=== PATIENT | female | born 1935 | race Caucasian/White ===

== ENCOUNTER 2016-03-08 12:25 | Emergency (ER) | payer OTHER ==
[2016-03-08 12:47] VITALS: BP 178/83; PULSE 83; RESP 20; TEMP 97.5; O2SAT 93
== END 2016-03-08 12:50 | disposition left against medical advice (07) ==
LOC: CED 12:25
DX: Z53.8 Procedure and treatment not carried out for other reasons (principal)

== ENCOUNTER 2016-03-08 13:17 | Emergency (ER) | payer OTHER ==
--- NOTE | 2016-03-08 14:44 | EDPHY ---
H & P Time Seen by Provider: 03/08/16 14:42 HPI/ROS: Chief complaint. Fall HPI. 80-year-old female slipped on the ice at about 4 o'clock yesterday afternoon she was out for a walk. Struck her face. Did not lose consciousness. She had laceration to her nose that blood quite a bit. Also injury to the right knee with lacerations and the right 4th finger. No chest discomfort or trouble breathing. No abdominal pain no back pain. ROS Constitutional. no fever/chills, no weakness Eyes. no problems with vision ENT. no sore throat, no nasal drainage. Bruising to the face Cardiovascular. no chest pain Respiratory. no shortness of breath, no cough Abdominal. no abdominal pain, no nausea/vomiting, no diarrhea . no problems urinating MS. Pain and swelling to right knee. Maybe some neck pain. Skin. Laceration to nose, a right 4th finger, right knee Lymph. no swollen glands Neuro. no headache, no dizziness, no difficulty walking or with speech Past Medical/Surgical History: Osteoporosis Social History: , lives alone, nonsmoker, denies alcohol Smoking Status: Never smoked Physical Exam: General Appearance: Alert well-developed female mild distress vitals are stable Eyes: Pupils equal and round no pallor or injection. Bilateral periorbital ecchymosis ENT, tympanic membranes are normal; no oral pharyngeal trauma; no septal hematoma Respiratory: There are no retractions, lungs are clear to auscultation. Cardiovascular: Regular rate and rhythm. Gastrointestinal: Abdomen is soft and nontender, no masses, bowel sounds normal. Neurological: Awake and alert, sensory and motor exams grossly normal. Skin: Warm and dry, no rashes. Laceration to bridge of nose that is not bleeding and has fairly good approximation. Musculoskeletal: Neck is supple nontender. Extremities symmetrical, full range of motion. Swelling to the right knee with superficial lacerations. Laceration to the tip of the right 4th finger and the patient feels that there may be gravel in it Psychiatric: Patient is oriented X 3, there is no agitation. Constitutional: Initial Vital Signs Temperature (C) 37 C 03/08/16 13:21 Heart Rate 77 03/08/16 13:21 Respiratory Rate 18 03/08/16 13:21 Blood Pressure 183/109 H 03/08/16 13:21 O2 Sat (%) 95 01/14/17 13:21 O2 Delivery Mode Room Air Allergies/Adverse Reactions: No Known Allergies Allergy (Verified 03/08/16 13:21) Home Medications: Medication Instructions Recorded NK [No Known Home Meds] 03/08/16 Medical Decision Making - Diagnostics Imaging: CT head and cervical spine significant for small chip fracture off the nose. This is reviewed by me and discussed with Dr. Walter X-ray right knee shows no evidence of fracture dislocation X-ray right 4th finger shows no evidence of foreign body or fracture or dislocation ED Course/Re-evaluation: Patient's wounds are cleaned and dressed. She and I discussed imaging study results, treatment plan including criteria for return importance of follow-up and further evaluation. She expresses understanding and agreement Differential Diagnosis: I considered intracranial bleeding, fractures, dislocation Departure - Departure Disposition: Home, Routine, Self-Care Clinical Impression: Fracture of nasal bone Qualifiers: Encounter type: initial encounter Fracture type: closed Qualifier Code: ( S02.2XXA) Fracture of nasal bones, initial encounter for closed fracture Condition: Good Instructions: Nasal Fracture (ED) Additional Instructions: Ice to face and knee next 24-48 hours. Tylenol and ibuprofen for discomfort. Return for worsening symptoms. Re-evaluation by Dr. Valera an Ear Nose Throat physician later this week. Referrals: Jessika Valera MD [Primary Care Provider] - 2-3 days without fail George Coelho MD [Medical Doctor] - 5-7 days, call for appt.
--- NOTE | 2016-03-08 16:37 | CT ---
Unenhanced CT Scan of the Brain and Cervical Spine Clinical History: 80-year-old female who fell forward yesterday, hitting her face, with swelling and bruising near the nose and the orbits. The patient denies any loss of consciousness. Technique: Standard unenhanced axial CT images were acquired from the skull base to the skull vertex, with images reformatted at 5.00 and 1.50 mm increments, and reviewed in bone, subdural, and brain wi ndows. The DFOV is 25.0 cm. Subsequently, a multidetector unenhanced helical CT scan was obtained fro m the clivus to the T1-T2 disk interspace, reformatted at 1.50 mm increments, and reviewed in bone, s oft tissue, and lung windows. The DFOV is 12.0 cm. Parasagittal and paracoronal reconstructed images are reviewed on the workstation. A dose reduction protocol was used. Comparison Study: None. Findings: UNENHANCED CT SCAN OF THE BRAIN: There is prominence of the ventricles and basilar cisterns with sang ical sulcal widening, consistent with moderately advanced cerebral cortical atrophy. There is also pe riventricular diminished attenuation, most consistent with chronic microvascular ischemic gliosis. Th ere is no acute or subacute abnormal intraaxial or extraaxial blood collection. There is a mild degre e of cerebellar atrophy. The brainstem is grossly unremarkable. There is some mild atherosclerotic ca lcification of the cavernous carotid arteries, and of the left vertebral artery. The paranasal sinuse s and mastoids are unremarkable. There is no acute skull fracture. There are some osteolucencies most consistent with pacchionian granulations in the left medial occipital calvarium. There is some mild perinasal soft tissue swelling and a mild contour irregularity associated with the right nasal bone. The nasomaxillary spine on each side is intact. The medial and lateral pterygoid plates are intact as are the zygomatic arches. The temporomandibular joints are anatomically aligned. The orbital rims ar e intact. The craniocervical junction is normal. There is an empty sella turcica. The calcified pinea l gland is unremarkable. Impression: 1. Moderately advanced senescent features, with no acute intracranial abnormality. 2. Contour deformity associated with the right nasal bone may reflect a nondisplaced fracture. UNENHANCED CT SCAN OF THE CERVICAL SPINE: There is straightening of the normal cervical lordosis, whi ch may be secondary to recumbent positioning or reflect some underlying cervicalgia. There are trace anterolistheses at C2-C3, C3-C4, and C4-C5, and trace retrolistheses at C5-C6 and C6-C7, likely degen erative in etiology. There is severe degenerative disk space narrowing at C5-C6 and C6-C7 with ventra l and dorsal traction osteophytes. There is no acute fracture identified, and there is no facet malal ignment. The craniocervical junction is normal. There is some osseous hypertrophy along the anterior ring of C1, and some narrowing of the predental space. The lateral masses of C1 and C2 are aligned, a nd the base of the dens is unremarkable. The visualized prevertebral soft tissues are unremarkable. T here is some minor heterogeneity associated with the upper poles of the thyroid gland, and the lower poles of the thyroid gland were not included. The visualized lung apices are notable for some mild pl europarenchymal fibrosis. At the C2-C3 level, there is the aforementioned trace anterolisthesis. There is facet hypertrophy, ri ght greater than left. There is a mild degree of right neural foraminal narrowing. The central canal and left neural foramen are patent. At the C3-C4 level, there is the aforementioned trace anterolisthesis. There is bilateral facet hyper trophy, right greater than left, with some uncovertebral hypertrophy resulting in wldr-os-hbrzewao ri ght neural foraminal stenosis. The left neural foramen and central canal remain patent. At the C4-C5 level, there is trace anterolisthesis. There is facet hypertrophy, left greater than rig ht, with uncovertebral osteophyte formation resulting in sdco-wa-mezsxdee right neural foraminal sten osis, and ruwuwiag-gj-omifvw left neural foraminal stenosis. There is no central canal stenosis. At the C5-C6 level, there is advanced degenerative disk space narrowing with facet hypertrophy and un covertebral osteophyte formation resulting in severe bilateral neural foraminal stenoses. There is no central canal stenosis. At the C6-C7 level, there is advanced degenerative disk space narrowing with uncovertebral osteophyte formation and facet hypertrophy. There is severe right and khmd-cv-wpwfacfc left neural foraminal st enosis. There is no central canal stenosis. At the C7-T1 level, there is a moderate degree of degenerative disk space narrowing. There is some mi ld bilateral facet hypertrophy and uncovertebral osteophyte formation, resulting in mild right neural foraminal stenosis. The left neural foramen and central canal remain patent. Impression: Multilevel degenerative changes, as-detailed, but no acute fracture identified. If there is further clinical concern regarding the patient's brain or cervical spine, MR imaging coul d be considered. Results were discussed with Dr. Dat Prado. A test result has been communicated to a licensed care provider and documented in [employer], 4:25:58 PM , 03/08/2016, [employer] Message ID [id number].
--- NOTE | 2016-03-08 16:37 | CT ---
Unenhanced CT Scan of the Brain and Cervical Spine Clinical History: 80-year-old female who fell forward yesterday, hitting her face, with swelling and bruising near the nose and the orbits. The patient denies any loss of consciousness. Technique: Standard unenhanced axial CT images were acquired from the skull base to the skull vertex, with images reformatted at 5.00 and 1.50 mm increments, and reviewed in bone, subdural, and brain wi ndows. The DFOV is 25.0 cm. Subsequently, a multidetector unenhanced helical CT scan was obtained fro m the clivus to the T1-T2 disk interspace, reformatted at 1.50 mm increments, and reviewed in bone, s oft tissue, and lung windows. The DFOV is 12.0 cm. Parasagittal and paracoronal reconstructed images are reviewed on the workstation. A dose reduction protocol was used. Comparison Study: None. Findings: UNENHANCED CT SCAN OF THE BRAIN: There is prominence of the ventricles and basilar cisterns with sang ical sulcal widening, consistent with moderately advanced cerebral cortical atrophy. There is also pe riventricular diminished attenuation, most consistent with chronic microvascular ischemic gliosis. Th ere is no acute or subacute abnormal intraaxial or extraaxial blood collection. There is a mild degre e of cerebellar atrophy. The brainstem is grossly unremarkable. There is some mild atherosclerotic ca lcification of the cavernous carotid arteries, and of the left vertebral artery. The paranasal sinuse s and mastoids are unremarkable. There is no acute skull fracture. There are some osteolucencies most consistent with pacchionian granulations in the left medial occipital calvarium. There is some mild perinasal soft tissue swelling and a mild contour irregularity associated with the right nasal bone. The nasomaxillary spine on each side is intact. The medial and lateral pterygoid plates are intact as are the zygomatic arches. The temporomandibular joints are anatomically aligned. The orbital rims ar e intact. The craniocervical junction is normal. There is an empty sella turcica. The calcified pinea l gland is unremarkable. Impression: 1. Moderately advanced senescent features, with no acute intracranial abnormality. 2. Contour deformity associated with the right nasal bone may reflect a nondisplaced fracture. UNENHANCED CT SCAN OF THE CERVICAL SPINE: There is straightening of the normal cervical lordosis, whi ch may be secondary to recumbent positioning or reflect some underlying cervicalgia. There are trace anterolistheses at C2-C3, C3-C4, and C4-C5, and trace retrolistheses at C5-C6 and C6-C7, likely degen erative in etiology. There is severe degenerative disk space narrowing at C5-C6 and C6-C7 with ventra l and dorsal traction osteophytes. There is no acute fracture identified, and there is no facet malal ignment. The craniocervical junction is normal. There is some osseous hypertrophy along the anterior ring of C1, and some narrowing of the predental space. The lateral masses of C1 and C2 are aligned, a nd the base of the dens is unremarkable. The visualized prevertebral soft tissues are unremarkable. T here is some minor heterogeneity associated with the upper poles of the thyroid gland, and the lower poles of the thyroid gland were not included. The visualized lung apices are notable for some mild pl europarenchymal fibrosis. At the C2-C3 level, there is the aforementioned trace anterolisthesis. There is facet hypertrophy, ri ght greater than left. There is a mild degree of right neural foraminal narrowing. The central canal and left neural foramen are patent. At the C3-C4 level, there is the aforementioned trace anterolisthesis. There is bilateral facet hyper trophy, right greater than left, with some uncovertebral hypertrophy resulting in ejrx-mi-ychedkxz ri ght neural foraminal stenosis. The left neural foramen and central canal remain patent. At the C4-C5 level, there is trace anterolisthesis. There is facet hypertrophy, left greater than rig ht, with uncovertebral osteophyte formation resulting in rkxk-yu-jhejdaju right neural foraminal sten osis, and ngpwubcg-or-twkxji left neural foraminal stenosis. There is no central canal stenosis. At the C5-C6 level, there is advanced degenerative disk space narrowing with facet hypertrophy and un covertebral osteophyte formation resulting in severe bilateral neural foraminal stenoses. There is no central canal stenosis. At the C6-C7 level, there is advanced degenerative disk space narrowing with uncovertebral osteophyte formation and facet hypertrophy. There is severe right and dghr-zx-wwmliakt left neural foraminal st enosis. There is no central canal stenosis. At the C7-T1 level, there is a moderate degree of degenerative disk space narrowing. There is some mi ld bilateral facet hypertrophy and uncovertebral osteophyte formation, resulting in mild right neural foraminal stenosis. The left neural foramen and central canal remain patent. Impression: Multilevel degenerative changes, as-detailed, but no acute fracture identified. If there is further clinical concern regarding the patient's brain or cervical spine, MR imaging coul d be considered. Results were discussed with Dr. Dat Prado. A test result has been communicated to a licensed care provider and documented in [employer], 4:25:58 PM , 03/08/2016, [employer] Message ID [id number].
--- NOTE | 2016-03-08 16:45 | DX ---
Right Knee, 5 Views Clinical Indications: Pain with associated laceration following trauma. Findings: A fracture or other acute osseous abnormality is not identified. The bone alignment is nor mal. No radiopaque foreign body is seen. Mild degenerative changes are noted. Impression: Negative for radiopaque foreign body or fracture.
--- NOTE | 2016-03-08 16:53 | DX ---
Three views right 4th digit Reason for examination: Pain following trauma; distal tip laceration. Findings: A fracture or other acute osseous abnormality is not seen. Degenerative changes are seen in volving interphalangeal joints of all the digits. Osseous demineralization is seen. No radiopaque for eign body is seen. Impression: Negative for acute osseous abnormality or radiopaque foreign body.
[2016-03-08 17:28] VITALS: BP 165/99; PULSE 75; RESP 16; TEMP 98.2; O2SAT 99
== END 2016-03-08 17:28 | disposition home or self-care (01) ==
DX: S02.2XXA Fracture of nasal bones, initial encounter for closed fracture (principal); W00.0XXA Fall on same level due to ice and snow, initial encounter; Y99.8 Other external cause status; Y93.01 Activity, walking, marching and hiking

== ENCOUNTER 2018-02-06 11:26 | Day surgery (SDC) | payer OTHER ==
[2018-02-06] MEDS ORDERED: GLUCAGON HCL 1 MG VIAL IVP ONE (12:19)
--- NOTE | 2018-02-06 12:22 | EDPHY ---
H & P Stated Complaint: choked on chicken 4pm yesterday/unable to swallow since Time Seen by Provider: 02/06/18 12:06 HPI/ROS: CHIEF COMPLAINT: Esophageal food impaction HISTORY OF PRESENT ILLNESS: 82-year-old female with history of esophageal stricture presents with an esophageal food impaction. At 4:00 p.m. yesterday, she was eating chicken and it became lodged in her esophagus. Unable to tolerate oral fluids or food since yesterday. Vomits immediately after oral intake. Associated with moderate pain over the lower chest. History of prior similar symptoms with esophageal food impactions. Status post esophageal dilation by Dr. Vela. REVIEW OF SYSTEMS: complete 10 point ROS reviewed and is negative except for the noted elements in the HPI - Personal History Current Tetanus Diphtheria and Acellular Pertussis (TDAP): Unsure - Medical/Surgical History Hx Asthma: No Hx Chronic Respiratory Disease: No Hx Diabetes: No Hx Cardiac Disease: No Hx Renal Disease: No Hx Cirrhosis: No Hx Alcoholism: No Hx HIV/AIDS: No Hx Splenectomy or Spleen Trauma: No Other PMH: osteoporosis esophageal stricture - Social History Smoking Status: Never smoked Alcohol Use: Sober Drug Use: None - Physical Exam Exam: General Appearance: Alert, pleasant and talkative Eyes: Pupils equal and round, no conjunctival pallor ENT, Mouth: Mucous membranes moist Neck: Normal inspection Respiratory: Lungs are clear to auscultation Cardiovascular: Regular rate and rhythm Gastrointestinal: Abdomen is soft and nontender Neurological: A&O, nonfocal, normal gait Skin: Warm and dry Extremities: Normal inspection Psychiatric: Mood and affect normal Constitutional: Initial Vital Signs Temperature (C) 36.3 C 02/06/18 11:38 Heart Rate 94 02/06/18 11:38 Respiratory Rate 18 02/06/18 11:38 Blood Pressure 151/122 H 02/06/18 11:38 O2 Sat (%) 94 02/06/18 11:38 O2 Delivery Mode Room Air O2 (L/minute) 4 Allergies/Adverse Reactions: No Known Allergies Allergy (Verified 02/06/18 11:37) Home Medications: Medication Instructions Recorded Protonix 02/06/18 Medical Decision Making ED Course/Re-evaluation: This patient presents with a esophageal food impaction. Glucagon 1 mg IV given without relief. GI consulted. Discussed with Dr. Corbin, pt taken directly for endoscopy. Differential Diagnosis: includes though not limited to gastric outlet obstruction, peptic ulcer disease , esophageal tumor - Data Points Medications Given: Discontinued Medications Glucagon (Glucagon) 1 mg IVP EDNOW ONE Stop: 02/06/18 12:20 Last Admin: 02/06/18 12:25 Dose: 1 mg Departure - Departure Disposition: Home, Routine, Self-Care Clinical Impression: Esophageal obstruction due to food impaction Condition: Fair
[2018-02-06] MEDS ORDERED: SUCCINYLCHOLINE CHLORIDE 200 MG/10 ML SYR IVP ONE (13:08)
[2018-02-06] MEDS ORDERED: ONDANSETRON 4 MG/2 ML VIAL ONE (13:08)
--- NOTE | 2018-02-06 13:22 | PDCONSULT ---
[employer] Accounts Manager Note: 82 yo female with foreign body in esophagus. Asked to assist with EGD today for removal PMH: esophageal stenosis and previous dysphagia Osteoporosis PSH: Prior EGD with dilation Meds: Protonix All: NKDA SH: No tob No etoh O: 151/120 HR 94 T 36.3 O2 sat 94% NAD CTA B/L RRR without m/r/g GI soft. NT/ND A/P Foreign body esophagus EGD with removal under MAC.
--- NOTE | 2018-02-06 13:39 | PDANEPAE ---
ANE Past Medical History - Cardiovascular History Hx Hypertension: Yes - Pulmonary History Hx COPD: No Hx Asthma/Reactive Airway Disease: No Hx Oxygen in Use at Home: No - Endocrine History Hx Diabetes: No - Renal History Hx Renal Disorders: No - Liver History Hx Hepatic Disorders: No - Neurological & Psychiatric Hx Hx Neurological and Psychiatric Disorders: No - Surgical History Prior Surgeries: Breast Surgery ANE Review of Systems Review of Systems: ANE Patient History - Allergies Allergies/Adverse Reactions: No Known Allergies Allergy (Verified 02/06/18 11:37) - Home Medications Home Medications: Protonix 02/06/18 [Last Taken Unknown] - NPO status NPO Since - Liquids (Date): 02/05/18 NPO Since - Liquids (Time): 21:00 NPO Since - Solids (Date): 02/05/18 NPO Since - Solids (Time): 21:00 - Smoking Hx Smoking Status: Never smoked ANE Labs/Vital Signs - Vital Signs Blood Pressure: 171/100 Heart Rate: 99 Respiratory Rate: 18 O2 Sat (%): 93 Height: 162.56 cm Weight: 68.946 kg ANE Physical Exam - Airway Neck exam: FROM Mallampati Score: Class 2 Mouth exam: normal dental/mouth exam - Pulmonary Pulmonary: no respiratory distress - Cardiovascular Cardiovascular: regular rate and rhythym, no murmur, rub, or gallop - ASA Status ASA Status: II, E ANE Anesthesia Plan Anesthesia Plan: general endotracheal anesthesia
[2018-02-06] MEDS ORDERED: NALOXONE HCL 0.4 MG/ML INJ IVP PRN (13:49)
[2018-02-06] MEDS ORDERED: PHENYLEPHRINE HCL 100 MCG/ML SYR IVP PRN (13:49)
[2018-02-06] MEDS ORDERED: fentaNYL 100 MCG/2 ML INJ IVP PRN (13:49)
[2018-02-06] MEDS ORDERED: MEPERIDINE 25 MG/0.5 ML AMP IVP PRN (13:49)
[2018-02-06] MEDS ORDERED: ONDANSETRON 4 MG/2 ML VIAL IVP PRN (13:49)
[2018-02-06] MEDS ORDERED: PROMETHAZINE HCL 25 MG/ML INJ IVP PRN (13:49)
[2018-02-06] MEDS ORDERED: METOCLOPRAMIDE 10 MG/2 ML VIAL IVP PRN (13:49)
--- NOTE | 2018-02-06 14:22 | GIREPORT ---
[facility] - Endoscopy Department Patient Name: Nicci Guzman Procedure Date: 02/06/2018 12:56 PM Patient Type: Outpatient Attending MD/ ER Physician: Case Corbin MD Procedure: Upper GI endoscopy Indications: Dysphagia, Foreign body in the esophagus Providers: Case Corbin MD Medicines: General Anesthesia Complications: No immediate complications. Description of Procedure: After obtaining informed consent, the endoscope was passed under direct vision. Throughout the procedure, the patient's blood pressure, pulse, and oxygen saturations were monitored continuously. The Endoscope was intro duced through the mouth, and advanced to the middle third of esophagus. Due t o a large amount of chicken and a stricture this endoscope could not pass t he obstruction. The Pediatric upper Endoscope was introduced through the m outh and was utilized to bridge the food bolus and stenosis, clear the food bolus, and advanced to the second part of duodenum. The patient tolerat ed the procedure well. The upper GI endoscopy was somewhat difficult due t o presence of foreign body. Findings: Food was found in the middle third of the esophagus and in the lower th ird of the esophagus. Removal of food was accomplished. One benign-appearing, intrinsic stenosis was found at the gastroesophag eal junction. This stenosis was moderately severe and measured 1 cm (inner diameter) x 2 cm (in length). The stenosis was traversed after downsizi ng scope. A small amount of food (residue) was found in the gastric fundus. The examined duodenum was normal. Estimated Blood Loss: Estimated blood loss: none. Post Op Diagnosis: - Food in the middle third of the esophagus and in the lower third of t he esophagus. Removal was successful. - Benign-appearing esophageal stenosis. - A small amount of food (residue) in the stomach. - Normal examined duodenum. Recommendation: - Mechanical soft diet. - Repeat upper endoscopy in 2 weeks for retreatment using the pediatric upper endoscope and with monitored anesthesia care. - Discharge patient to home (ambulatory). - Continue present medications. - Avoid all NSAIDs - Patient has a contact number available for emergencies. The signs and symptoms of potential delayed complications were discussed with the pat ient. Return to normal activities tomorrow. Written discharge instructions we re provided to the patient. - Thank you for allowing me to be involved in the care of your patient. Attending Participation: I personally performed the entire procedure without the assistance of a fellow, resident or surg ical showroom sales assistant. Case Corbin MD Case Corbin MD 02/06/2018 2:22:21 PM This report has been signed electronicallyDavid MD Shaquille Number of Addenda: 0 Note Initiated On: 02/06/2018 12:56 PM [email or web address]
[2018-02-06 15:40] VITALS: BP 139/85
--- NOTE | 2018-02-06 16:07 | POSTANESTH ---
Post Anesthetic Evaluation Cardiovascular Status: Normal, Stable Respiratory Status: Normal, Stable Level of Consciousness/Mental Status: Can Participate in Eval Pain Control: Adequate, Prn Tx Ordered Nausea/Vomiting Control: Adequate, Prn Tx Ordered Complications Possibly Related to Anesthesia: None Noted
== END 2018-02-06 16:08 | disposition home or self-care, planned readmission (81) ==
LOC: FSGY 13:21
PROVIDERS: ATTEND Internal Medicine Gastroenterology
DX: T18.128A Food in esophagus causing other injury, initial encounter (principal); M81.0 Age-related osteoporosis without current pathological fracture; Z87.19 Personal history of other diseases of the digestive system
CPT/HCPCS: 96374; J0330; J1610; J2405